=== PATIENT | female | born 1950 | race Caucasian/White ===

== ENCOUNTER 2023-09-27 05:05 | Observation (INO) ==
--- NOTE | 2023-08-29 12:25 | PAT Medication Instructions ---
Medication Instructions Date of Service August 29, 2023 Home Medications Medication Instructions Recorded budesonide-formoterol HFA 160 1 puffs inhalation BID #10.2 grams 11/22/19 mcg-4.5 mcg/actuation aerosol inhaler (Symbicort) nebivolol 10 mg tablet (Bystolic) 10 mg PO HS #90 tabs 12/02/20 Medication List: budesonide-formoterol HFA 160 mcg-4.5 mcg/actuation aerosol inhaler (Symbicort) 1 puffs inhalation BID cholecalciferol (vitamin D3) 125 mcg (5,000 unit) capsule 125 mcg PO QAM rosuvastatin 10 mg tablet 10 mg PO .COMPLEX nebivolol 10 mg tablet (Bystolic) 10 mg PO HS coenzyme Q10 100 mg tablet 100 mg PO HS mv-mn-folic 200 mcg-vit K 15 mcg-lutein 5 mg-zeaxanthin 1 mg capsule (PreserVision AREDS 2 Plus Multivit) 1 cap PO BID omeprazole 20 mg tablet,delayed release 20 mg PO QAM [facility] Bone Strength 3 tabs PO HS cetirizine 10 mg tablet 10 mg PO QAM hawthorn carr 565 mg capsule 565 mg PO QAM hydrochlorothiazide 12.5 mg tablet 12.5 mg PO QAM losartan 100 mg tablet 100 mg PO QAM MEDICATION INSTRUCTIONS: Continue as directed budesonide-formoterol HFA 160 mcg-4.5 mcg/actuation aerosol inhaler (Symbicort) 1 puffs inhalation BID rosuvastatin 10 mg tablet 10 mg PO .COMPLEX STOP taking 2 weeks before surgery coenzyme Q10 100 mg tablet 100 mg PO HS [facility] Bone Strength 3 tabs PO HS hawthorn carr 565 mg capsule 565 mg PO QAM mv-mn-folic 200 mcg-vit K 15 mcg-lutein 5 mg-zeaxanthin 1 mg capsule (PreserVision AREDS 2 Plus Multivit) 1 cap PO BID DO NOT take the morning of surgery hydrochlorothiazide 12.5 mg tablet 12.5 mg PO QAM losartan 100 mg tablet 100 mg PO QAM cetirizine 10 mg tablet 10 mg PO QAM cholecalciferol (vitamin D3) 125 mcg (5,000 unit) capsule 125 mcg PO QAM Take morning of surgery With a small sip of water, OTHERWISE NOTHING TO EAT OR DRINK AFTER MIDNIGHT: omeprazole 20 mg tablet,delayed release 20 mg PO QAM Take evening before surgery nebivolol 10 mg tablet (Bystolic) 10 mg PO HS Other Notes If you have any questions please call us at [phone] or [phone] or [phone] or [phone]
--- NOTE | 2023-08-31 14:20 | Anesthesiology Consultation ---
Date of Service August 31, 2023 Assessment & Plan (1) Encounter for pre-operative examination: - right arm restriction. - eye injection day before surgery-patient aware to discuss with prescriber and surgeon. I sent message to surgeon's office. - Outpatient joint assessment: Patient is currently scheduled for inpatient pathway. If re-evaluated and patient/surgeon requests outpatient pathway, patient is acceptable candidate for outpatient joint program from anesthesia standpoint pending surgeon's office assessment of pt motivation/support/completion of same day joint program preop requirements. Chart Review Chart Review: Acceptable Risk for Surgery and Patient seen in Pre Admission Testing Teaching & Discussion Pre-Anesthesia Teaching/Discussion Notes: Instructed NPO after midnight before surgery, except medications with 15 cc of water. Medication instructions provided according to the PAT guidelines. History Surgery Operation Date: 09/27/23 10:30 Proposed Procedures p Left Total Knee Arthroplasty - Toro Thorpe MD Height/Weight Height: 5 ft 2 in Weight: 76.7 kg Allergies Allergy/AdvReac Type Severity Reaction Status Date / Time NSAIDS (Non-Steroidal AdvReac Intermediate itching Verified 08/22/23 11:03 Anti-Inflamma Medications Home Medications Medication Instructions Recorded Confirmed Last Taken budesonide-formoterol HFA 160 1 puffs inhalation BID #10.2 grams 11/22/19 08/22/23 Unknown mcg-4.5 mcg/actuation aerosol inhaler (Symbicort) cholecalciferol (vitamin D3) 125 125 mcg PO QAM 11/22/19 08/22/23 Unknown mcg (5,000 unit) capsule rosuvastatin 10 mg tablet 10 mg PO .COMPLEX 08/26/20 08/22/23 Unknown nebivolol 10 mg tablet (Bystolic) 10 mg PO HS #90 tabs 12/02/20 08/22/23 Unknown coenzyme Q10 100 mg tablet 100 mg PO HS 08/10/22 08/22/23 Unknown mv-mn-folic 200 mcg-vit K 15 1 cap PO BID 08/10/22 08/22/23 Unknown mcg-lutein 5 mg-zeaxanthin 1 mg capsule (PreserVision AREDS 2 Plus Multivit) omeprazole 20 mg tablet,delayed 20 mg PO QAM 08/10/22 08/22/23 Unknown release [facility] Bone Strength 3 tabs PO HS 08/22/23 08/22/23 Unknown cetirizine 10 mg tablet 10 mg PO QAM 08/22/23 08/22/23 Unknown suzie carr 565 mg capsule 565 mg PO QAM 08/22/23 08/22/23 Unknown hydrochlorothiazide 12.5 mg tablet 12.5 mg PO QAM 08/22/23 08/22/23 Unknown losartan 100 mg tablet 100 mg PO QAM 08/22/23 08/22/23 Unknown Past Medical History Medical History AMD (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 HTN (hypertension) controlled, stable per pt Limb alert care status right arm Patient denies h/o stroke, seizures, heart attack, heart failure, DM, blood clots/DVTs or blood transfusions. Exercise / Class Metabolic Activity II 4-5 Yardwork/Stairs/Walk up hill (denies chest discomfort or shortness of breath with 1 FOS) Past Family History Family History Grandfather (Maternal) , Passed in 80's of "bone cancer" No problems noted. Mother , Passed age 86 of Pancreatic Cancer Pancreatic cancer Father , Passed in 80's of "blood cancer" Clotting disorder Stroke Diabetes Heart disease Hypertension Brother , Passed age 40 of alcoholic/drugs No problems noted. Daughter No problems noted. 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 Physical Exam Vital Signs Vitals BP 113/77 P 66 TEMP 98.4 SP02 94% on RA RESP 18 Physical Patient resting comfortably in chair in no acute distress, alert and oriented, responding appropriately throughout visit Full cervical extension range of motion without pain TMD 3.5 finger breadths Mallampati Score 2 Dentition: partial plate-removable and several caps/crowns, denies chipped or loose teeth, caps/crowns, implants or bridges Lungs: normal respiratory effort. Good air movement, clear throughout to auscultation, no adventitious breath sounds Cardiac: regular rate and rhythm, no murmurs noted Carotid arteries: negative bruit bilat Lab Results Anesthesia Preop Results Results Anesthesia Widget: WBC 5.66 K/ul (4.8-10.8) 08/31/23 Hgb 13.1 g/dl (12.0-16.0) 08/31/23 Hct 37.8 % (37.0-47.0) 08/31/23 Plt 181 K/uL (130-400) 08/31/23 Na 132 mmol/L (136-145) L 08/31/23 K 3.7 mmol/L (3.5-5.1) 08/31/23 Cl 100 mmol/L (98-107) 08/31/23 CO2 27 mmol/L (21-32) 08/31/23 BUN 22 mg/dl (6-23) 08/31/23 Creat 0.89 mg/dl (0.6-1.2) 08/31/23 Glucose Level 124 mg/dl (70-99(Fasting)) H 08/31/23 PT 11.1 Seconds (9.0-12.0) 08/31/23 PTT 25 Seconds (21-31) 08/31/23 INR 1.0 (0.9-1.1) 08/31/23 Blood Type A Positive 08/31/23 Antibody Screen NEGATIVE 04/03/24 Testing Electrocardiogram Date: 08/31/23 Sinus bradycardia, rate 58 bpm Chest X-Ray Date: 08/31/23 No acute process.
[2023-09-27] MEDS: ACETAMINOPHEN 500 MG TAB PO SCH ×2 (05:44→13:07)
[2023-09-27] MEDS: dexAMETHasone**PF** 10 MG/ML VIAL IV SCH (05:44)
[2023-09-27] MEDS: METOCLOPRAMIDE HCL 10 MG TABLET PO SCH (05:44)
[2023-09-27] MEDS: oxyCODONE HCL 10 MG TABCR (OxyCONTIN) PO SCH (05:44)
[2023-09-27] MEDS: GABAPENTIN 300 MG CAP PO SCH (05:45)
[2023-09-27] MEDS: LR 60ML/HR IV SCH (05:45)
[2023-09-27] MEDS: traMADol HCL 50 MG TABLET PO SCH (05:45)
[2023-09-27] MEDS: FAMOTIDINE 20 MG TAB PO SCH (05:45)
[2023-09-27] MEDS: CeleBREX 200 MG CAP PO SCH (05:46)
[2023-09-27] MEDS: LR 500ML BOLUS, THEN 15ML/HR IV SCH (06:10)
[2023-09-27] MEDS ORDERED: ROPIVACAINE 0.5% 5 MG/ML 30 ML VIAL ONE (06:17)
[2023-09-27] MEDS ORDERED: PROPOFOL IV EMULSION 10 MG/ML 20 ML VIAL IV ONE ×2 (06:22→08:53)
[2023-09-27] MEDS ORDERED: fentaNYL citrate PF 100 MCG/2 ML VIAL ONE (06:22)
[2023-09-27] MEDS ORDERED: MIDAZOLAM HCL 1 MG/ML 2ML VIAL ONE (06:22)
[2023-09-27] MEDS ORDERED: ePHEDrine sulfate 50 MG/ML AMP IV PRN (06:43)
[2023-09-27] MEDS ORDERED: ATROPINE SULFATE 0.1 MG/ML 10ML SYR IV PRN (06:43)
[2023-09-27] MEDS ORDERED: ONDANSETRON INJ 2 MG/ML 2 ML VIAL IV PRN (06:43)
[2023-09-27] MEDS ORDERED: fentaNYL citrate PF 100 MCG/2 ML VIAL IV PRN (06:43)
[2023-09-27] MEDS ORDERED: HYDROmorphone INJ 2 MG/ML SYR/VIAL IV PRN (06:43)
--- NOTE | 2023-09-27 06:44 | History & Physical Bridge Note ---
Date of Service September 27, 2023 History & Physical Bridge Note I have examined the patient, reviewed the History & Physical and in the interval since the performance of the History & Physical I have noted the following changes of clinical significance: no changes noted
[2023-09-27] MEDS: TRANEXAMIC ACID 1,000 MG **IV Pre-op IV SCH (06:51)
[2023-09-27] MEDS: ceFAZolin 2000MG 2,000 MG/15 ML SYR IV SCH ×2 (07:05→15:59)
[2023-09-27] MEDS ORDERED: BUPIVACAINE 0.5 % 5 MG/1 ML PF 10ML VIAL ONE (07:22)
[2023-09-27] MEDS: ORTHO JOINT ANESTHETIC ONE (07:37)
[2023-09-27] MEDS: ROPIV 0.5% 246mg, Ketorolac 30mg, EPINEPHrine 0.5mg in NSS INFIL SCH (07:37)
--- OUTSIDE RECORDS SUMMARY | 2023-09-27 08:14 | External Medical Summary | Continuity of Care Document ---
Author Name Unknown Organization [facility] [address] [facility] [address] Address [address] [place], [place] [id number] [id number] Date(s): 08/31/23 - 08/31/23 [facility] [address] [facility] [address] [facility] Sports Medicine [address] [place] [id number] Encounter Diagnosis Left knee DJD(Discharge Diagnosis) - 08/31/23 Discharge Disposition: Home or Self Care Attending Physician: MIKE Mcnulty, Estela Germain Referring Physician: MD Maurilio, Toro Myers Allergies, Adverse Reactions, Alerts Substance Reaction Severity Status ibuprofen itching Active Medications Bystolic Start: 03/18/23 8:59:00 EDT Start Date: 03/18/23 Status: Ordered CoQ10 Start: 03/18/23 9:00:00 EDT Start Date: 03/18/23 Status: Ordered Euflexxa 10 mg/mL intra-articular solution Start: 04/04/23 12:44:00 EST, 20 mg =, intra-articular, q7days, Disp# 6 mL, Refills: 0, 6 syringes for B/L knees., Note to Pharmacy: B/L KNEE DJD M17.0, other Start Date: 04/04/23 Stop Date: 04/25/23 Status: Ordered hydroCHLOROthiazide 12.5 mg oral capsule Start: 03/18/23 8:58:00 EDT Start Date: 03/18/23 Status: Ordered ICaps AREDS Start: 03/18/23 9:00:00 EDT Start Date: 03/18/23 Status: Ordered losartan 100 mg oral tablet Start: 03/18/23 8:58:00 EDT Start Date: 03/18/23 Status: Ordered omeprazole Start: 03/18/23 8:59:00 EDT Start Date: 03/18/23 Status: Ordered rosuvastatin 10 mg oral tablet Start: 03/18/23 8:57:00 EDT Start Date: 03/18/23 Status: Ordered Symbicort 160 mcg-4.5 mcg/inh inhalation aerosol Start: 03/18/23 8:58:00 EDT Start Date: 03/18/23 Status: Ordered Vitamin D3 5000 intl units (125 mcg) oral tablet Start: 03/18/23 9:00:00 EDT Start Date: 03/18/23 Status: Ordered ZyrTEC Start: 03/18/23 8:59:00 EDT Start Date: 03/18/23 Status: Ordered Mental Status 08/31/23 Barriers to Learning one year None evide nt Mandatory Health Literacy Documentation Yes Health Literacy Communication Barriers N ever Primary Language Yoruba Problem List Condition Confirmation Course Effective Dates Status Health St atus Informant Arthritis of both knees Confirmed Active Left knee DJD Confirmed Active Diagnosis Diagnosis Type Effective Dates Health Status Cl inical Service Informant Left knee DJD Discharge Diagnosis 08/31/23 Vital Signs Most recent to oldest [Reference Range]: 1 Height 157.5 cm (08/31/23 12:57 PM) Patient Weight 75 kg (08/31/23 12:57 PM) Body Mass Index 30.23 kg/m2 (08/31/23 12:57 PM) Temperature [36.5-37.9 DegC] 36.2 DegC *LOW* (08/31/23 12:57 PM) Respiratory Rate 20 br/min (08/31/23 12:57 PM) Blood Pressure 124/80mmHg (08/31/23 12:57 PM) Cuff Pulse Pressure 44 mmHg (08/31/23 12:57 PM) Social History Social History Type Response Smoking Status Never smoked cigaret isra Sex Female
[2023-09-27] MEDS: VANCOMYCIN HCL 1000MG/20ML VIAL ONE (09:25)
--- NOTE | 2023-09-27 10:03 | Operative Report ---
Post Operative Report Pre & Post Diagnosis Operation Date: 09/27/23 07:00 Pre-Op Diagnosis: Left Knee Osteoarthritis Post-Op Diagnosis: Left Knee Osteoarthritis I identified the patient and participated in the time-out.: Yes Procedure Operation Date: 09/27/23 07:00 Actual Procedures p Left Total Knee Arthroplasty(Left) - Toro Thorpe MD Surgeon Toro Thorpe MD S[employer]ities [employer]er LEVI Bates physicians optometrist assistant no resident or fellow available Estimated Blood Loss 5 Findings Consistent with Post-Op Diagnosis Specimens Resected bone and soft tissue Anesthesia Type MAC Spinal Regional Complications none Disposition Accompanied Patient To Recovery: No Disposition: Recovery Room Indications Lashawn bah 73 has severe arthritis of her left knee. This is refractory to nonsurgical treatment and she wishes to have a total knee replacement. Description of Procedure Informed consent obtained. Patient identified. She identified the operative site as the left knee. I marked with my initials. A preoperative surgical timeout was performed. A preop dose of IV antibiotics was given. She was taken to the operating room positioned supine on the operating table. The anesthetic was administered. A tourniquet was applied to the left thigh and a bump under the left hip and left calf. Leg was prepped and draped in the usual sterile fashion. TXA given. Exam under anesthesia revealed range of motion 0/10/110 with fixed varus alignment. Intact LCL. DVT prophylaxis with foot pumps intraoperatively. Postop early mobility mechanical devices and Eliquis. The limb was exsanguinated with the Esmarch. Tourniquet inflated to 250 mmHg. Midline longitudinal incision was made followed by medial parapatellar arthrotomy. The retropatellar fat pad was resected. The synovial layer in the lateral gutter was released. An extensile medial release was performed back around the posterior medial corner of the tibia. Soft tissue on the anterior aspect of the distal femur was excised. The patella was everted and the knee was flexed. Notch osteophytes were excised and the cruciate ligaments were intact and excised. The tibia was subluxated. Cruciates resected. Lateral compartment showed intact articular surfaces and meniscus. Medial lateral meniscus excised. The medial meniscus was deficient. There was severe arthritis in the medial compartment with grade 4 changes and bone wear of the femur and tibia and large osteophytes which were removed throughout the knee as encountered. There was grade 2 and 3 changes of the patella. The peripatellar synovium was excised and osteophytes on the patella were removed. A harbor pilot hole was drilled into the tibia just in front of and between the tibial spines. This was followed by the introduction of the intramedullary alignment nilay. The 3 degree posterior slope cutting block was applied and aligned to the tibial tubercle. Set to resect 10 mm off the lateral side corresponding to a 4 mm cut medially. This guide was pinned in the place and the extra medullary alignment nilay confirmed appropriate alignment and slope. This cut was made and sized to a 3 tibia. A harbor pilot hole was drilled in the distal femur followed by the insertion of the distal femoral cutting guide. 11 mm thick cut 7 degree valgus based on templating. This guide was pinned into place and the cut was made. The extension gap was a slightly asymmetric 6. The epicondylar axis was marked out. The distal femoral sizing guide was applied and sized to a 3. The pin holes were drilled which matched the external rotation axis. The size 3 anterior noncutting block was applied and pinned into place and the cuts were made. The box cutting guide was applied and lateralized and the box cut was made. Posterior osteophytes were removed particularly on the medial femur. Also large osteophytes posterior medial tibia and lateral tibia. Trialing was again performed and after some more medial releasing there was a symmetric 8 mm flexion and extension gap. The trial femur was applied and the lug holes were drilled. The tibia was prepared by aligning the tray to the tibial tubercle which provided good medial to lateral coverage and appropriate rotation. The revision tibial tray was utilized because of the patient's osteoporosis. The appropriate reamers were utilized to the appropriate depth. This was followed by the keel punch. Trialing was then performed with 8 mm spacer which showed full extension. Slight residual play in full extension and 1+ MCL and LCL laxity in mid position and slight plate medial lateral at 90 degrees of flexion. I was not happy with the depth of seeding of the revision tibial tray and then went ahead and reprepped the tibia to ensure that it was of adequate depth. Even at that and with leveling some posterolateral bone that may have been prominent the revision tibial tray trial sat a millimeter or so proud. The patella measured 22 mm in thickness. Gap was sent to preserve 14 mm of bone. A 35 mm patella was selected. The cut was made. The patella paddle was aligned with the knee in slight flexion and aligned for coverage. The lug holes were drilled and patellar tracking was fine with no hands technique.The trial components were removed from the knee. The tibial canal was plugged. The bony surfaces were then meticulously prepared by irrigation and drying. Soft tissue protector was throughout the surgical procedure. Ortho joint mix was injected into the back of the knee. 2 bags of Simplex P cement with 2 total grams of vancomycin powder were mixed on the back table for 1 minute. While in a daily state the components were cemented in place femur tibia and patella. Cement applied to the lug holes and to the posterior aspect of the femur. The stem was cemented and placed on the tibia. The knee was held in full extension with a trial spacer until the cemented hardened. The remainder of the Ortho joint mix was injected and irrigation was performed. Once the cemented hardened the tourniquet was let down after 112 minutes of inflation. Minimal bleeding. Meticulous hemostasis. Patellar thickness was 22 mm. Extraneous cement was removed and the back of the knee was inspected. Trialing was performed with the 8 and then the 10. There was 1+ MCL and LCL laxity at 20 degrees knee flexion which was improved by the 10 spacer. The knee was fully straight stable in full extension and at 90 and had trace MCL laxity at 20 degrees knee flexion and 1+ LCL laxity at 20 degrees knee flexion. Patellar tracking was fine with no hands technique. The final tibial poly was inserted. Irrigation performed. The extensor mechanism was closed above the equator the patella with interrupted #2 FiberWire's. The extensor mechanism below the equator the patella was closed with running interrupted #1 Vicryl. The skin was closed in layers with 0 and 2-0 Vicryl followed by isabella. The leg was cleaned and then a soft roll dressing was applied Xeroform 4 x 4's ABD soft wrap Ben wrap. The Ortho joint mix was injected into the skin at the conclusion of the procedure. Knee immobilizer supplied to patient. She was then awakened from anesthesia without difficulty and taken to the recovery room in stable condition. The resected bone and soft tissue were sent for specimen. Counts were correct and blood loss is estimated to be 5 cc. At the conclusion of the operation spoke to patient's informed of my findings and postop instructions and details were given and discussed. Plan is to rehab according to standard total knee repair protocol. She may weight-bear as tolerated. Harviell assisted flexion with extensor mechanism closed was 120 to 125 degrees. The knee was fully straight. Components inserted were the J&J attune knee a siz e 3 left posterior stabilized femur, a size 3 mobile-bearing keeled tibial tray with a size 3 x 10 mm thick polyethylene insert and a 35 mm patella. I attest to the content of the Intraoperative Record and any orders documented therein. Any exceptions are noted below.
[2023-09-27] MEDS ORDERED: NALOXONE HCL 0.4 MG/1 ML VIAL/CARP IV PRN (10:10)
[2023-09-27] MEDS ORDERED: METOCLOPRAMIDE HCL INJ 5 MG/ML 2 ML VIAL IV PRN (10:10)
[2023-09-27] MEDS ORDERED: HYDROmorphone INJ 0.5 MG/0.5 ML SYR IV PRN (10:10)
[2023-09-27] MEDS ORDERED: ALUMINUM/MAGNESIUM SUSP 30 ML UDC PO PRN (10:10)
[2023-09-27] MEDS ORDERED: bisacodyL 10 MG SUPP PR PRN (10:10)
[2023-09-27] MEDS ORDERED: diphenhydrAMINE 50 MG/ML VIAL IV PRN (10:10)
[2023-09-27] MEDS ORDERED: MAGNESIUM HYDROXIDE SUSP 30 ML UDC PO PRN (10:10)
--- NOTE | 2023-09-27 10:10 | Operative Report ---
Post Operative Report Pre & Post Diagnosis Operation Date: 09/27/23 07:00 Pre-Op Diagnosis: Left Knee Osteoarthritis Post-Op Diagnosis: Left Knee Osteoarthritis I identified the patient and participated in the time-out.: Yes Procedure Operation Date: 09/27/23 07:00 Actual Procedures p Left Total Knee Arthroplasty(Left) - Toro Thorpe MD Surgeon Toro Thorpe MD Soda Jerker LEVI Bates physicians historian research assistant no resident or fellow available Estimated Blood Loss 5 Findings Consistent with Post-Op Diagnosis Specimens left knee bone and soft tissue Description of Procedure I was present during the entire case assisting with positioning, prepping, draping, wound retraction, wound closure, dressing and immobilizer placement. No fellow present. Please see Dr. Thorpe procedure note for specifics of the case. I attest to the content of the Intraoperative Record and any orders documented therein. Any exceptions are noted below.
[2023-09-27] MEDS ORDERED: NO NSAIDS SCH (10:15)
--- NOTE | 2023-09-27 11:15 | XRay Report ---
LEFT KNEE 2 VIEWS History: Left total knee arthroplasty. Degenerative arthritis. Postop. FINDINGS: The patient is status post a left total knee arthroplasty. The hardware is intact. No fract ure or dislocation. Skin isabella are in place. IMPRESSION: Left total knee arthroplasty. No evidence for hardware complication. ACT 112: Negative or not required by law. Electronically signed by: Devendra Fermin M.D. 09/27/2023 11:14 AM
[2023-09-27] MEDS: SODIUM CHLORIDE 0.9% 1,000 ML IV SCH (12:03)
[2023-09-27] MEDS: ONDANSETRON INJ 2 MG/ML 2 ML VIAL IV PRN (12:07)
[2023-09-27] MEDS: ROSUVASTATIN CALCIUM 10 MG TAB PO SCH (13:07)
--- NOTE | 2023-09-27 13:52 | Anesthesiology Progress Note ---
Date of Service September 27, 2023 Anesthesia Post Procedure Vital Signs Vital Signs: Temp Pulse Pulse Resp BP BP Pulse Ox 09/27/23 13:29 36.3 C L 58 L 16 158/77 H 94 09/27/23 12:24 36.4 C L 68 16 169/75 H 94 09/27/23 12:00 36.6 C 56 L 16 149/72 H 95 09/27/23 11:25 36.3 C L 55 L 16 152/76 H 95 09/27/23 11:00 54 L 20 156/75 H 96 09/27/23 10:50 36.4 C L 60 18 161/74 H 96 09/27/23 10:40 53 L 20 143/66 H 94 09/27/23 10:30 54 L 18 157/70 H 94 09/27/23 10:20 56 L 20 155/71 H 95 09/27/23 10:10 56 L 16 143/72 H 95 09/27/23 10:09 36.6 C 60 15 139/74 96 09/27/23 05:33 36.6 C 57 L 20 159/77 H 96 O2 Del Method 09/27/23 13:29 Room Air 09/27/23 12:24 Room Air 09/27/23 12:00 Room Air 09/27/23 11:25 Room Air 09/27/23 11:00 Room Air 09/27/23 10:50 Room Air 09/27/23 10:40 Room Air 09/27/23 10:30 Room Air 09/27/23 10:20 Room Air 09/27/23 10:10 Room Air 09/27/23 10:09 Room Air 09/27/23 05:33 Room Air Transfer of Care Handoff Completed per policy Notes Mental Status: alert / awake / arousable and participated in evaluation Patient Amnestic to Procedure: Yes Nausea / Vomiting: adequately controlled Pain: adequately controlled Airway Patency, RR, SpO2: stable & adequate BP & HR: stable & adequate Hydration State: stable & adequate Neuraxial Anesthesia: was administered and sensory block is resolving Anesthetic Complications: no major complications apparent and Pt Satisfied with anesthetic care
[2023-09-27] MEDS: oxyCODONE HCL IR 5 MG TAB (IMMEDIATE RELEASE) PO PRN (14:53)
[2023-09-27] MEDS: TRANEXAMIC ACID / 0.7% NACL 1,000 MG/100 ML BAG IV SCH (16:03)
--- NOTE | 2023-09-27 17:04 | Orthopedic Progress Note ---
Date of Service September 27, 2023 Assessment & Plan (1) Status post knee replacement: Plan: Surgical findings are reviewed and discussed. She is stable postoperatively. PT OT pain medication antibiotics and Eliquis beginning in the morning. Numbness and weakness likely secondary to nerve block. Will reassess Admission and Anticipated Discharge Date Admission Date: September 27, 2023 Subjective No problems noted. Minor nausea controlled with medication. Pain is well- controlled. Physical Exam Physical Exam: DP and PT pulses are 1+. Capillary refill less than 2 seconds. There is persistent numbness in the foot likely secondary to the block. She has 4+ out of 5 EHL. No active ankle dorsiflexion. She has 5-4 inversion eversion and plantarflexion. Results & Data Vital Signs (Past 12 Hours) Vital Signs Temp Pulse Pulse Resp BP BP Pulse Ox 09/27/23 14:57 36.6 C 72 16 179/83 H 95 09/27/23 13:29 36.3 C L 58 L 16 158/77 H 94 09/27/23 12:24 36.4 C L 68 16 169/75 H 94 09/27/23 12:00 36.6 C 56 L 16 149/72 H 95 09/27/23 11:25 36.3 C L 55 L 16 152/76 H 95 09/27/23 11:00 54 L 20 156/75 H 96 09/27/23 10:50 36.4 C L 60 18 161/74 H 96 09/27/23 10:40 53 L 20 143/66 H 94 09/27/23 10:30 54 L 18 157/70 H 94 09/27/23 10:20 56 L 20 155/71 H 95 09/27/23 10:10 56 L 16 143/72 H 95 09/27/23 10:09 36.6 C 60 15 139/74 96 09/27/23 05:33 36.6 C 57 L 20 159/77 H 96 O2 Del Method 09/27/23 14:57 Room Air 09/27/23 13:29 Room Air 09/27/23 12:24 Room Air 09/27/23 12:00 Room Air 09/27/23 11:25 Room Air 09/27/23 11:00 Room Air 09/27/23 10:50 Room Air 09/27/23 10:40 Room Air 09/27/23 10:30 Room Air 09/27/23 10:20 Room Air 09/27/23 10:10 Room Air 09/27/23 10:09 Room Air 09/27/23 05:33 Room Air Diagnostic Findings Radiographs demonstrate good positioning of the components without evidence of complication.Report noted.
[2023-09-27] MEDS ORDERED: [UNRECOGNIZED DRUG - OTHER] PO SCH (21:00)
[2023-09-27] MEDS: SENNA 8.6 MG TAB PO SCH (21:07)
[2023-09-27] MEDS: DOCUSATE SODIUM 100 MG CAP PO SCH (21:07)
[2023-09-27] MEDS: CEROVITE ADV FORMULA TAB PO SCH (21:07)
[2023-09-27] MEDS ORDERED: Nursing to Pharmacy Communication SCH (21:30)
[2023-09-27] MEDS: METOPROLOL TARTRATE 50 MG TAB PO SCH (22:26)
[2023-09-27] MEDS: NEBIVOLOL 10 MG PO ONE (22:27)
[2023-09-28 03:26] VITALS: RESP 18
[2023-09-28 07:11] LABS: Hematocrit (blood only) 34.7 % (37.0-47.0); Hemoglobin 11.9 g/dl (12.0-16.0); Mean Corpuscular Hemoglobin 32.5 pg (25.0-34.0); Mean Corpuscular Hgb Conc 34.3 g/dL (32.0-36.0); Mean Corpuscular Volume 94.8 fL (80.0-100.0); Mean Platelet Volume 11.5 fL (9.4-12.4); Platelet Count 164 K/uL (130-400); RDW Coefficient of Variation 12.1 % (11.5-14.5); RDW Standard Deviation 41.9 fL (36.4-46.3); Red Blood Count 3.66 M/uL (4.20-5.40); White Blood Count 9.69 K/ul (4.8-10.8)
[2023-09-28 07:21] LABS: Calcium 8.8 mg/dl (8.6-10.3); Creatinine Clr Calc Pharmacy 54.7 ml/min; Est GFR (African American) 76.6 ml/min; Est GFR (Non-African American) 66.1 ml/min; Potassium 3.9 mmol/L (3.5-5.1)
[2023-09-28] MEDS: APIXABAN 2.5 MG TAB PO SCH (08:06)
[2023-09-28] MEDS: CETIRIZINE HCL 10 MG TABLET PO SCH (08:06)
[2023-09-28] MEDS: CHOLECALCIFEROL 125 MCG (5,000 UNITS) TAB PO SCH (08:07)
[2023-09-28] MEDS: FLUTICASONE/VILANTEROL 100/25MCG 14 PUFFS/INHALER INH SCH (08:08)
[2023-09-28] MEDS: MULTIVITAMIN TAB PO SCH (08:09)
[2023-09-28] MEDS: hydroCHLOROthiazide 25 MG TAB PO SCH (08:09)
[2023-09-28] MEDS: LOSARTAN POTASSIUM 50 MG TAB PO SCH (08:09)
[2023-09-28] MEDS: PANTOprazole 40 MG TAB PO SCH (08:10)
--- NOTE | 2023-09-28 09:59 | Orthopedic Progress Note ---
Date of Service September 28, 2023 Assessment & Plan (1) Status post knee replacement: Plan: Weightbearing as tolerated with walker assistance Discontinue immobilizer PT/OT DVT prophylaxis with Eliquis and GABY stockings Pain control with p.o. medication Ice with easy wrap Keep dressing in place until it is changed by in-home nursing Plan is to discharge home later this morning with in-home physical therapy for the first 2 weeks postoperatively Follow-up with [facility] orthopedics as previously scheduled. With questions contact our clinic at [phone] Admission and Anticipated Discharge Date Admission Date: September 27, 2023 Subjective This 73-year-old female is day 1 status post left total knee arthroplasty. Patient states she is doing very well. She states that her pain is well- controlled with p.o. pain medication. She is hoping to be discharged home later this morning with in-home physical therapy and home nursing for the first 2 weeks. She states that she has help at home with her and daughter. She states that she is able to raise her leg and hopes to discontinue use of the immobilizer because it is uncomfortable. Currently she denies chest pain, shortness of breath, fever, chills, sweats or numbness or tingling in her left lower extremity. Review of Systems Review of Systems: All systems reviewed & are unremarkable except as noted in Subjective Physical Exam Physical Exam: Left lower extremity: Immobilizer was removed. Patient is able to form an active straight leg raise test. She is able to actively dorsi and plantarflex her foot and has no weakness with applied resistance. She has no pain or weakness with resisted internal or external rotation. She is able to detect light sensation to touch over the pads of all digits. Her peripheral pulses are 2+. She is neurovascularly intact in the left lower extremity. Dressing was kept in place because it was clean dry and intact. Results & Data Vital Signs (Past 12 Hours) Vital Signs Temp Pulse Resp BP Pulse Ox O2 Del Method 09/28/23 07:27 36.8 C 62 18 150/70 H 95 Room Air 09/28/23 03:22 36.7 C 64 18 149/72 H 94 Room Air 09/27/23 23:14 36.8 C 63 17 130/75 93 Room Air Laboratory Results Laboratory Results WBC 9.69 K/ul (4.8-10.8) 09/28/23 06:29 RBC 3.66 M/uL (4.20-5.40) L 09/28/23 06:29 Hgb 11.9 g/dl (12.0-16.0) L 09/28/23 06:29 Hct 34.7 % (37.0-47.0) L 09/28/23 06:29 MCV 94.8 fL (80.0-100.0) 09/28/23 06:29 MCH 32.5 pg (25.0-34.0) 09/28/23 06: MCHC 34.3 g/dL (32.0-36.0) 09/28/23 06:29 RDW Std Deviation 41.9 fL (36.4-46.3) 09/28/23 06: RDW Coeff of Reginald 12.1 % (11.5-14.5) 09/28/23 06:29 Plt Count 164 K/uL (130-400) 09/28/23 06:29 MPV 11.5 fL (9.4-12.4) 09/28/23 06:29 Sodium 134 mmol/L (136-145) L 09/28/23 06:29 Potassium 3.9 mmol/L (3.5-5.1) 09/28/23 06:29 Chloride 100 mmol/L (98-107) 09/28/23 06:29 Carbon Dioxide 26 mmol/L (21-32) 09/28/23 06:29 Anion Gap 8 (3-11) 09/28/23 06:29 BUN 20 mg/dl (6-23) 09/28/23 06:29 Creatinine 0.87 mg/dl (0.6-1.2) 09/28/23 06:29 Est Cr Clr Drug Dosing 54.7 ml/min 09/28/23 06:29 Est GFR ( Amer) 76.6 ml/min 09/28/23 06:29 Est GFR (Non-Af Amer) 66.1 ml/min 09/28/23 06:29 BUN/Creatinine Ratio 23.0 (10-20) H 09/28/23 06:29 Glucose 157 mg/dl (70-99(Fasting)) H 09/28/23 06:29 Calcium 8.8 mg/dl (8.6-10.3) 09/28/23 06:29 Impressions Knee X-Ray 09/27/23 10:10 LEFT KNEE 2 VIEWS History: Left total knee arthroplasty. Degenerative arthritis. Postop. FINDINGS: The patient is status post a left total knee arthroplasty. The hardware is intact. No fracture or dislocation. Skin isabella are in place. IMPRESSION: Left total knee arthroplasty. No evidence for hardware complication. ACT 112: Negative or not required by law. Electronically signed by: Devendra Fermin M.D. 09/27/2023 11:14 AM
[2023-09-28] MEDS: CEROVITE ADV FORMULA TAB PO SCH (11:04)
[2023-09-28 11:32] VITALS: PULSE 66; TEMP 98.9; O2SAT 92
[2023-09-28 11:47] VITALS: BP 169/75
--- NOTE | 2023-09-28 12:22 | Discharge Summary ---
Date of Service September 28, 2023 Admission HPI Per Admitting Provider History of Present Illness Lashawn Triana is a 72-year-old female who presents today for f/u of bilateral knee pain. She ended her series of Euflexxa injections on 05/13/2023 and states that these were not helpful and may have worsened her pain. Patient is having severe amounts of pain and is considering TKA. Her left knee pain is worse than her right. She has lateral left knee pain and overarching constant pain. Patient takes Tylenol for her pain and describes her pain as burning. She rates her pain as a 6/10. Patient has pain at rest, when walking, and that it wakes her up at night. She denies swelling. Patient has previously had cortisone injections, lubricating injections, and use Tylenol. Her pain has worsened since her last visit. To her worsening symptoms and failure of conservative treatment she wishe s to proceed with a left total knee arthroplasty. She states that her left knee is worse than the right. She uses a walking cane to assist with ambulation. She has a walker and a raised toilet seat and a shower chair for use at home. She has not had her bone density re-checked and has a history of osteoporosis. T-score in 05/2020 of spine is -2.1, total hip -2.2, and femoral neck -2.6. She takes [employer] [place] Bone Strength. Patient has reservations about getting her bone density treated and does not trust the medicines she has heard about. She is following up with her PCP next month. Patient is not a smoker. She has a history of breast cancer, HTN, HLD, and asthma. Patient states that all of these are in control. She denies history of liver or kidney disease. Patient does not take a blood thinner or pacemaker. She is allergic to Ibuprofen and gets itching when she takes this. Patient has previously had a spinal anesthetic when she had a section and states that this only numbed one side. There is no history of bleeding or blood clots allergies to metal or MRSA. She does not have any significant dental or genitourinary problems. No recurrent infections. Admission Exam Per Admitting Provider General: Well-dressed, well-nourished. Normal mood and affect. Alert and oriented x3. HEENT: Head: Atraumatic, normocephalic. Eyes: Extraocular movements intact, pupils equal round and reactive to light, sclera normal. Ears: Ears grossly normal, TMs are clear normal light reflex. Nose: Nares are patent bilaterally. Throat: Oropharynx clear mucous membranes moist good dentition uvula midline. Neck: Supple, no lymphadenopathy, nontender palpation, full range of motion. Cardiac: Regular rate and rhythm, normal S1, S2. No murmurs, rubs or gallops appreciated. Lungs: Clear to auscultation bilaterally. No adventitious sounds. No accessory muscle use. Abdomen: Soft, nontender, nondistended, normal bowel sounds heard in all 4 quadrants. Extremities: Focusing on the patient's bilateral lower extremity: Antalgic gait Varus Alignment 1+ DP and 1+ PT pulses Sensation intact to light touch Motor strength: 5/5 Knee flexion and extension; ankle plantarflexion, dorsiflexion, inversion, and eversion. Knee (left) ROM: 0/ 5/ 100 Knee (right) ROM: 0/ 2/ 115 Intact active straight leg raise No effusion Hip ROM: Painless, Equal to other side Medial knee joint tenderness bilaterally left greater than right. Left: Positive medial joint line tenderness Negative posterior drawer Knee is stable in full extension 1+ MCL and LCL laxity at 20 knee flexion Principal Diagnosis Left knee osteoarthritis Discharge Exam Left lower extremity: Immobilizer was removed. Patient is able to form an active straight leg raise test. She is able to actively dorsi and plantarflex her foot and has no weakness with applied resistance. She has no pain or weakness with resisted internal or external rotation. She is able to detect light sensation to touch over the pads of all digits. Her peripheral pulses are 2+. She is neurovascularly intact in the left lower extremity. Dressing was kept in place because it was clean dry and intact. Discharge Data Allergies Allergy/AdvReac Type Severity Reaction Status Date / Time NSAIDS (Non-Steroidal AdvReac Intermediate itching Verified 09/27/23 05:37 Anti-Inflamma Procedures Performed Operation Date: 09/27/23 07:00 Actual Procedures p Left Total Knee Arthroplasty(Left) - Toro Thorpe MD Ordered Studies 09/27/23 05:00 US - OR guided needle placemen Routine Hospital Course (1) Status post knee replacement: Patient had an uneventful overnight stay following left total knee arthroplasty. She did develop some nausea after having her IV removed prior to discharge and I was contacted by her nurse. I did send a prescription for Zofran tablets to her pharmacy to use for the next few days. Patient is scheduled to begin physical therapy in her home later this week. She states that she will be primarily standing on the first floor of her home until she feels able to and safe to ascend her stairs. She is very pleased with the results of her surgery. She has questions or concerns she will contact her clinic. Weightbearing as tolerated with walker assistance Discontinue immobilizer PT/OT DVT prophylaxis with Eliquis and GABY stockings Pain control with p.o. medication Ice with easy wrap Keep dressing in place until it is changed by in-home nursing Plan is to discharge home later this morning with in-home physical therapy for the first 2 weeks postoperatively Follow-up with [facility] orthopedics as previously scheduled. With questions contact our clinic at [phone] Total Time Total Time Spent Total Time Spent (In Minutes): 25 mins Discharge Plan Discharge Items Patient Disposition: Home - Home Health Services Reason For Visit: Left Knee Osteoarthritis Discharge Diagnosis: Left knee osteoarthritis Activity: As commented below Lifting: None Bathing: Keep incision dry and May shower/bathe in 3 days Sexual Activity: Wait until after follow-up appointment Exercise/Sports: Wait until after follow-up appointment Driving/Machine Use: No driving until cleared by loss prevention specialist Weightbearing: Left weightbearing Weightbearing Comment: As tolerated with walker assistance Non-emergency contact: Surgeon Call non-emergency contact if: you have any medication questions, your pain is not controlled, your temperature is above 101.5, your wound has increased drainage and your wound pain has increased Follow-up/Referrals: Kelvin Polk PA-C [Primary Care Provider] - Diet: Carb Consistent or DM2 Addtl Attending Provider Instructions: New Medicine: * You will likely be taking one or more of these medications: 1. Eliquis- You will be on Eliquis for 4 weeks after surgery to prevent blood clots. Aspirin, 81 mg is OK to use. A prescription for the Eliquis will will be sent to your pharmacy. 2. Oxycodone 5 mg-take 1 to 2 tablets every 4-6 hours as needed for postoperative pain control. A prescription for this medication will be sent to your pharmacy. 3. Tramadol 50 mgtake 1 to 2 tablets every 6 hours as needed for postoperative pain control. A prescription for this medication will be sent to your pharmacy 4. Colace & Senokot - Take to prevent constipation which can be caused by narcotics. These can be bought [id number] at the pharmacy * The most common side effects of pain medicine are nausea and constipation. If nausea or constipation is too much of a problem or if you have any questions about your new medicines or doses, call [facility] at . We will try to help you manage these issues. "VERY IMPORTANT TO READ AND REVIEW" Blood Clots and Blood Thinning Medicine: * You are given Eliquis during the immediate post-operative period to lessen the risk of blood clots forming in your legs and/or lungs. Eliquis is usually given for Four weeks after surgery. * The prescription is for 2.5 mg tablets. Physical Therapy: * Do your physical therapy at home. These are the exercises you learned while in the hospital (quad sets, leg raises, calf pumps, gluteal squeezes, knee bending, and heel props.) You should do these exercises 3-4 times per day. * You will go home with Home Therapy and nursing or home with outpatient rehab. You should do rehab with the therapist 2-3 times per week. You should do therapy on your own daily. * You may bear full weight on your leg with crutches or walker unless otherwise advised. Home Exercise: * You were shown a series of exercises (heel props, heel slides, etc.) in the hospital. Do these exercises three to four times each day including the exercises you were shown in physical therapy. Walking: * You may be up for short periods of time. Standing and walking for 1-2 hours at a time is usually okay. You should not stand or walk for excessive periods of time as this may Cause increased pain and swelling. SELF CARE INSTRUCTIONS AFTER TOTAL KNEE REPLACEMENT A. You may need to continue a physical therapy program after discharge from the hospital. There are several options available to you. Your doctor will assist you in selecting the best one for you. 1. An out-patient facility 2 to 3 times a week for therapy or home therapy. 2. Continue working on all exercises taught to you in the hospital. Your goals should be to increase bending of your knee to 90 degrees and beyond and to fully straighten your knee. B. Your therapist will notify you when you are able to progress from a walker to a cane. C. Wear TEDS as much as possible.~ They may be removed at night for laundering. D. Do not place a pillow behind your knee when resting. A pillow at your ankle is okay. E. Ice your knee 15-20 minutes every 2-3 hours and elevate it above the level of your heart. F. You may shower on the fourth day after surgery using regular soap and water. Do not submerge until the wound is completely healed (approximately 2 weeks). Until the fourth day after surgery, cover the incision/bandage with a bag or plastic wrap. G. Anyone who is touching your surgical incision area should wash their hands and wear gloves. H. Keep your incision covered with gauze pads under the GABY hose until it is dry. VERY IMPORTANT TO READ AND REVIEW A. There are a few signs you need to watch for after you are home. Call [facility] if you notice any of the followin. Increased severe knee pain. Some pain is expected especially when you exercise. 2. Increased swelling in your leg or knee; pain or swelling of the calf muscle in either lower leg. 3. Any fluid drainage from the incision. 4. Shortness of breath or chest pain. 5. Numbness and tingling in the surgical extremity B. Please call [facility] at if you have any concerns or questions about your operation or recovery. The doctor or his nurse will return your call promptly. C. Do not have any elective dental work or other elective procedures done for 6 weeks after your knee replacement. When you have any invasive procedure (dental cleaning, extraction, colonoscopy etc) performed, you will need to take antibiotics to prevent infection from developing in your artificial joint. Tell your other health care providers you have an artificial joint. My office will supply you with further information and the antibiotics. Call your doctor if: * Temperature above 101 degrees F. * Pain not relieved by pain medicine ordered. * Increased drainage or redness from incision. * Notify your doctor with any questions or concerns. Follow-up Visit: You will follow-up with Dr. Thorpe 10-14 days after surgery. The office number is . Avoid all tobacco products. If you need help to stop smoking, call [place] QUIT[facility] at . This is a free call. Pending Studies at Discharge: No Stand-Alone Forms: My [facility], Smoking Cessation Medications and DC Order Prescriptions: New Eliquis 2.5 mg Tablet 2.5 mg PO BID 14 Days Qty: 28 1RF acetaminophen [Tylenol Extra Strength] 500 mg Tablet 1,000 mg PO Q8 30 Days Qty: 180 0RF oxycodone 5 mg Tablet 5 - 10 mg PO Q4H MDD 6 tablets/day PRN (Reason: Postoperative pain control) Qty: 28 0RF tramadol 50 mg tablet 50 mg PO Q6 MDD 6 tablets/day Qty: 28 0RF ondansetron 4 mg tablet,disintegrating 4 mg PO Q8H Qty: 14 0RF Continued rosuvastatin 10 mg tablet 10 mg PO .COMPLEX Rx Instructions: 10 mg PO 6 x per week.; Bystolic 10 mg tablet 10 mg PO HS Qty: 90 1RF cholecalciferol (vitamin D3) 125 mcg (5,000 unit) capsule 125 mcg PO QAM budesonide-formoterol [Symbicort] 160-4.5 mcg/actuation HFA aerosol inhaler 1 puffs INH BID Qty: 10.2 2RF omeprazole 20 mg tablet,delayed release (DR/EC) 20 mg PO QAM PreserVision AREDS 2 Plus MV 200 mcg-15 mcg- 5 mg-1 mg capsule 1 cap PO BID coenzyme Q10 100 mg tablet 100 mg PO HS cetirizine 10 mg Tablet 10 mg PO QAM hawthorn carr 565 mg Capsule 565 mg PO QAM [place] Bone Strength 3 tabs PO HS losartan 100 mg tablet 100 mg PO QAM hydrochlorothiazide 12.5 mg tablet 12.5 mg PO QAM Discontinued Excedrin Back and Body 250-250 mg Tablet See Protocol PO Protocol: Age Greater than 75 Protocol Text: Age less than 75 years, to be administred with initial in subcutaneous dose Krames/Other Patient Handouts: Knee Replace Home Recovery, Knee Replace 1st Month Admission Data Admit Date/Time: 09/27/23 10:10 Attending Provider: Toro Thorpe Admit Provider: Toro Thorpe Primary Care Provider: Kelvin Polk Other Providers: [facility],Home Health Other Interventions: Discharge Summary Assessment (RN) Last Done: 09/28/23 11:44
== END 2023-09-28 13:05 | disposition home health service (06) ==
LOC: 3N 05:05 → ASU 05:05

== ENCOUNTER 2024-07-10 07:46 | Observation (INO) ==
--- NOTE | 2024-06-28 12:37 | Anesthesiology Consultation ---
Date of Service June 28, 2024 Assessment & Plan (1) Encounter for pre-operative examination: Chart Review Chart Review: Acceptable Risk for Surgery (pending upcoming PCP office visit review ) and Patient NOT seen in Pre Admission Testing - Awaiting PCP office visit scheduled 07/04/24 (MELODY Mora) - Check BSG AM DOS Right limb restriction -Infectious Disease screening: Per PAT nursing assessment on 06/28/24. No known infectious disease contacts in past 10 days or current infectious disease symptoms. No recent travel outside the country. Left TKA 09/27/23= Done under SAB at L3-4 with 1 attempt History Surgery Operation Date: 07/10/24 09:50 Proposed Procedures p Right Total Knee Arthroplasty - Toro Thorpe MD Height/Weight Height: 5 ft 1.5 in Weight: 73.936 kg Allergies Allergy/AdvReac Type Severity Reaction Status Date / Time NSAIDS (Non-Steroidal AdvReac Intermediate itching Verified 06/28/24 10:42 Anti-Inflamma Medications Home Medications Medication Instructions Recorded Confirmed Last Taken budesonide-formoterol HFA 160 1 puffs inhalation BID #10.2 grams 11/22/19 06/28/24 09/27/23 03:30 mcg-4.5 mcg/actuation aerosol inhaler (Symbicort) cholecalciferol (vitamin D3) 125 125 mcg PO QAM 11/22/19 06/28/24 09/26/23 06:00 mcg (5,000 unit) capsule rosuvastatin 10 mg tablet 10 mg PO UD 08/26/20 06/28/24 09/25/23 20:00 nebivolol 10 mg tablet (Bystolic) 10 mg PO HS #90 tabs 12/02/20 06/28/24 09/26/23 22:00 coenzyme Q10 100 mg tablet 100 mg PO HS 08/10/22 06/28/24 Unknown mv-mn-folic 200 mcg-vit K 15 1 cap PO BID 08/10/22 06/28/24 Unknown mcg-lutein 5 mg-zeaxanthin 1 mg capsule (PreserVision AREDS 2 Plus Multivit) omeprazole 20 mg tablet,delayed 20 mg PO QAM 08/10/22 06/28/24 09/27/23 03:30 release [employer] Bone Strength 3 tabs PO HS 08/22/23 06/28/24 Unknown cetirizine 10 mg tablet 10 mg PO QAM 08/22/23 06/28/24 09/26/23 06:00 suzie carr 565 mg capsule 565 mg PO QAM 08/22/23 06/28/24 Unknown hydrochlorothiazide 12.5 mg tablet 12.5 mg PO QAM 08/22/23 06/28/24 09/25/23 13:00 losartan 100 mg tablet 100 mg PO QAM 08/22/23 06/28/24 09/26/23 06:00 ondansetron 4 mg disintegrating 4 mg PO Q8H post op nausea #14 tabs 09/28/23 06/28/24 Unknown tablet Past Medical History Medical History (Updated 06/28/24 @ 12:36 by Katharine Griffin PA-C) AMD (age related macular degeneration) Asthma well-controlled, no need for prn inh Dyslipidemia GERD (gastroesophageal reflux disease) History of anesthesia reaction during patient only had a unilateral spinal anesthesia. HTN (hypertension) Hx of breast cancer dx 03/2020, sx and 20 xrt Limb alert care status right arm Osteopenia T2DM (type 2 diabetes mellitus) pt denies, stated her A1C "is getting close"; no recent A1Cs on file (most recent A1C 02/2023 was 6.4) Past Family History Family History Grandfather (Maternal) , Passed in 80's of "bone cancer" No problems noted. Mother , Passed age 86 of Pancreatic Cancer Pancreatic cancer Father , Passed in 80's of "blood cancer" Clotting disorder Stroke Diabetes Heart disease Hypertension Brother , Passed age 40 of alcoholic/drugs No problems noted. Daughter No problems noted. 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 History of right breast biopsy (04/16/20) History of total left knee replacement 09/27/2023 S/P emergency section (1990) Social History Smoking Status: Never smoker Do You Dip or Chew Tobacco: No Hx Alcohol Use: No Hx Substance Use: No substance use type: does not use Testing Laboratory Results 06/27/24= WBC: 6.14 H/H: 13.2/39.0 PLATELETS: 213 SODIUM: 130 (chronic mild hyponatremia- ranged from 132-134 in the past) POTASSIUM: 4.1 CHLORIDE: 99 CO2: 28.2 BUN: 21.2 CREATININE: 0.95 GLUCOSE: 203 PT: 12.7 INR: 1.14 Electrocardiogram Date: 08/31/23 Sinus bradycardia, rate 58 bpm Chest X-Ray Date: 08/31/23 No acute process.
[~2024-07-10 07:46] MED LIST: BUPIVACAINE 0.25% PF 30 ML VIAL ONE; BUPIVACAINE 0.5 % 5 MG/1 ML PF 10ML VIAL ONE; DEXAMETHASONE SOD INJ 4 MG/ML VIAL ONE; EPINEPHrine INJ 1 MG/ML AMP ONE
[2024-07-10] MEDS: GABAPENTIN 300 MG CAP PO SCH (08:17)
[2024-07-10] MEDS: ACETAMINOPHEN 500 MG TAB PO SCH ×2 (08:17→21:32)
[2024-07-10] MEDS: dexAMETHasone**PF** 10 MG/ML VIAL IV SCH (08:17)
[2024-07-10] MEDS: oxyCODONE HCL 10 MG TABCR (OxyCONTIN) PO SCH (08:17)
[2024-07-10] MEDS: CeleBREX 200 MG CAP PO SCH (08:18)
[2024-07-10] MEDS: LR 60ML/HR IV SCH (08:18)
[2024-07-10] MEDS: METOCLOPRAMIDE HCL 10 MG TABLET PO SCH (08:18)
[2024-07-10] MEDS: traMADol HCL 50 MG TABLET PO SCH (08:22)
[2024-07-10] MEDS: LR 500ML BOLUS, THEN 15ML/HR IV SCH (08:53)
[2024-07-10] MEDS ORDERED: MIDAZOLAM HCL 1 MG/ML 2ML VIAL ONE (09:25)
[2024-07-10] MEDS ORDERED: fentaNYL citrate PF 100 MCG/2 ML VIAL ONE (09:25)
[2024-07-10] MEDS ORDERED: PROPOFOL IV EMULSION 10 MG/ML 20 ML VIAL IV ONE ×2 (09:56→12:16)
--- NOTE | 2024-07-10 10:22 | History & Physical Bridge Note ---
Date of Service July 10, 2024 History & Physical Bridge Note I have examined the patient, reviewed the History & Physical and in the interval since the performance of the History & Physical I have noted the following changes of clinical significance: no changes noted
[2024-07-10] MEDS: TRANEXAMIC ACID 1,000 MG **IV Pre-op IV SCH (10:40)
[2024-07-10] MEDS ORDERED: ePHEDrine sulfate 50 MG/5 ML SYR ONE (10:47)
[2024-07-10] MEDS ORDERED: PHENYLEPHRINE 100MCG/ML 5ML SYR ONE (10:47)
[2024-07-10] MEDS ORDERED: PROMETHAZINE HCL 6.25 MG in SODIUM CHLORIDE 0.9% 50 ML IV PRN (10:55)
[2024-07-10] MEDS ORDERED: ATROPINE SULFATE 0.1 MG/ML 10ML SYR IV PRN (10:55)
[2024-07-10] MEDS ORDERED: ePHEDrine sulfate 50 MG/ML AMP IV PRN (10:55)
[2024-07-10] MEDS ORDERED: ONDANSETRON INJ 2 MG/ML 2 ML VIAL IV PRN ×2 (10:55→16:34)
[2024-07-10] MEDS ORDERED: fentaNYL citrate PF 100 MCG/2 ML VIAL IV PRN (10:55)
[2024-07-10] MEDS: ceFAZolin 2000MG 2,000 MG/15 ML SYR IV SCH ×2 (11:11→20:06)
[2024-07-10] MEDS ORDERED: DexMEDEtomidine HCL IV 100 MCG/ML VIAL IV ONE (11:36)
[2024-07-10] MEDS: ORTHO JOINT ANESTHETIC ONE (11:53)
[2024-07-10] MEDS ORDERED: ONDANSETRON INJ 2 MG/ML 2 ML VIAL ONE (12:16)
--- OUTSIDE RECORDS SUMMARY | 2024-07-10 12:23 | External Medical Summary | Continuity of Care Document ---
Author Name Unknown Organization [place] [id number] Address [address] [place] [address] [id number] Care Team Providers Care Automobile Service Station Attendant Name Role Phone Kelvin Polk Primary Care Physician [phone] Encounter [facility] [id number] Date(s): 06/27/24 - 06/27/24 [facility] [address] [place] [id number] [facility] Medicine [address] [place] [id number] Encounter Diagnosis Right knee DJD(Discharge Diagnosis) - 06/27/24 Preop examination(Discharge Diagnosis) - 06/27/24 Discharge Disposition: Home or Self Care Attending Physician: MIKE Rod, Dakota Burrows Referring Physician: MD Maurilio, Toro Myers Allergies, Adverse Reactions, Alerts Substance Criticality Severity Reaction Reaction Severity Status ibuprofen itching Active Medications amoxicillin 500 mg oral capsule Start: 10/12/23 1:48:00 PM EDT, 4 cap, PO, As indicated, Disp# 12 cap, Refills: 3, one hour before dental and other procedures as directed, Pharmacy: [id number] Start Date: 10/12/23 Status: Ordered Bystolic Start: 03/18/23 8:59:00 AM EDT Start Date: 03/18/23 Status: Ordered CoQ10 Start: 03/18/23 9:00:00 AM EDT Start Date: 03/18/23 Status: Ordered Euflexxa 10 mg/mL intra-articular solution Start: 04/04/23 12:44:00 PM EST, 20 mg =, intra-articular, q7days, Disp# 6 mL, Refills: 0, 6 syringes for B/L knees., Note to Pharmacy: B/L KNEE DJD M17.0, other Start Date: 04/04/23 Stop Date: 04/25/23 Status: Ordered hydroCHLOROthiazide 12.5 mg oral capsule Start: 03/18/23 8:58:00 AM EDT Start Date: 03/18/23 Status: Ordered ICaps AREDS Start: 03/18/23 9:00:00 AM EDT Start Date: 03/18/23 Status: Ordered losartan 100 mg oral tablet Start: 03/18/23 8:58:00 AM EDT Start Date: 03/18/23 Status: Ordered omeprazole Start: 03/18/23 8:59:00 AM EDT Start Date: 03/18/23 Status: Ordered ondansetron 4 mg oral tablet, disintegrating Start: 10/07/23 11:06:00 AM EDT Start Date: 10/07/23 Status: Ordered rosuvastatin 10 mg oral tablet Start: 03/18/23 8:57:00 AM EDT Start Date: 03/18/23 Status: Ordered Symbicort 160 mcg-4.5 mcg/inh inhalation aerosol Start: 03/18/23 8:58:00 AM EDT Start Date: 03/18/23 Status: Ordered Vitamin D3 5000 intl units (125 mcg) oral tablet Start: 03/18/23 9:00:00 AM EDT Start Date: 03/18/23 Status: Ordered ZyrTEC Start: 03/18/23 8:59:00 AM EDT Start Date: 03/18/23 Status: Ordered Mental Status 06/27/24 Barriers to Learning one year None evide nt Mandatory Health Literacy Documentation Yes Health Literacy Communication Barriers N ever Primary Language Bulgarian Problem List Condition Confirmation Course Effective Dates Status Health St atus Informant Arthritis of both knees Confirmed Active S/P knee replacement Confirmed Active Left knee DJD Confirmed Active Right knee DJD Confirmed Active Preop examination Confirmed Active Diagnosis Diagnosis Type Effective Dates Health Status Clinical Service Informant Right knee DJD Discharge Diagnosis 06/27/24 Preop examination Discharge Diagnosis 06/27/24 Procedures Procedure Date Related Diagnosis Body Site Status Total knee arthroplasty 1 09/27/23 Completed PARTIAL MASTECTOMY Comple tk 1Left Vital Signs Most recent to oldest [Reference Range]: 1 Height 156 cm (06/27/24 2:08 PM) Patient Weight 75.7 kg (06/27/24 2:08 PM) Body Mass Index 31.11 kg/m2 (06/27/24 2:08 PM) Heart Rate 64 bpm (06/27/24 2:08 PM) Blood Pressure 130/80mmHg (06/27/24 2:08 PM) Cuff Pulse Pressure 50 mmHg (06/27/24 2:08 PM) Social History Social History Type Response Smoking Status Never smoked cigaret isra Sex Female Sex Representation Female (finding) Pre-OP H & P * MIKE Jung, Gallo: PERFORM, MODIFY, MODIFY, MODIFY, MODIFY Event Display: Pre-OP H & P Authored Date: [id number] Name:VALERIA ZULUAGA Patient Number:[id number] :1950 Date of Service:06/27/2024 Chief Complaint R knee total replacement History of Present Illness Alexander a 73-year-old female accompanied by kerry who presents to the clinic today for history and physical examination. [facility] [facility]. Patient had herleft knee replaced with Dr. Thorpein Augustnd is very happy with it.She is looking forward to getting this one replaced. Is using Tylenol for the pain right now. Denies any new swellingabout the knee. No redness or rash on the knee. She has aprimary careclearanceappointmentscheduledand upcoming. Has a phone appointment scheduled withanesthesia for tomorrowbut does not need torepeat her preanesthesiaappointment. She has had no changes in her health status since herknee replacement9 months ago. Does not have any dental work scheduled. With last surgery, shewas happy with the home health servicesthat were utilized. She had [facility] to [facility] house for in-home PT for 4 to 6 weeksand she would like to do this again. She has not had any blood work since herlast surgery. Her pain was well-controlledlast surgery with a combination of Tylenol, tramadol, and oxycodone. She took Eliquis for 2 weekswith her last surgery. She still has awalker, cane, raised toilet seat, and shower chair at home. Does not need a temporary handicap parkingplacard. Her allergy toibuprofenlisted in her chart was discussed, and she reports a history of itchingwith anti-inflammatories in general. She is able to tolerate aspirin (from excedrin). Denies any history ofdiabetes. She has not had any recent illnesses. No cough, cold,fever, chills, chest pain, shortness of breath, abdominal pain,nausea, vomiting, diarrhea, dysuria, frequency,or urgency. No history of MRSA infection. No history of blood clots. Review of Systems Available in EMR Physical Exam Vitals & Measurements HR:64(Monitored) BP:130/80 SpO2:96% HT:156cm WT:75.700kg(Dosing) WT:75.7kg BMI:31.11 BMI:31.11 kg/m2 CONSTITUTIONAL: well developed, well nourished. resting comfortably in no distress. pleasant. EARS: tm's without erythema or bulging. canals without erythema or edema. EYES: PERRL. conjunctiva normal MOUTH: oropharynx clear. dentition in good repair. no evidence of dental infection CARDIOVASCULAR: regular rate and rhythm. no murmurs, rubs, or gallops RESPIRATORY: no tachypnea. lungs clear to auscultation bilaterally ABDOMEN: normal bowel sounds MUSCULOSKELETAL: Right knee with no effusion, rash, redness, or warmth. Stable in full extension with 1+ varus valgus laxity at 20 degrees knee flexion. Painless hip movement intact posterior drawer,negative Vonnie. Range of motion 0/1/110intact sensation NEUROLOGIC: no gross deficits Diagnostic Results Xrays of the knee interpreted by Dr. Thorpe on 06/22/2024 showlefttotal knee arthroplasty with a revision tibial stem. Well fixated and in good position. There is medial compartment arthritis [id number] right kneewith varus alignment. Generalized osteopenia. No fracture or bone orsoft tissue lesion evident. Radiographs done at [facility] Assessment/Plan 1.Right knee DJD 2.Preop examination Patient is scheduled for right total knee arthroplasty with Dr. Thorpe on 07/10/2023 History and physical performed today. No health concerns wereappreciated. Expectant management discussedregarding her upcoming surgery. At her last visit with Dr. Thorpeon 06/22/2024,informed consentform was completed and signed by the patient. Her EKG and chest x-ray will be currentanddo not require repeating. CBC, BMP, PT/INR, andtype and screen orderedtoday. She will have these results faxed to [facility]. She has no urinary symptoms. She does not have an in person preanesthesia appointment however will bespeaking with them on thephone tomorrow. She will discussmedicationsto take and hold in the perioperative timeframe however she has already started holdinghersupplements and Excedrin. Advised her that she can useTylenol up until the night before surgery for pain. PCP clearanceappointment is scheduled and upcoming and encouraged her to have the PCP clearance form faxed back to our office. Pain management plan:Patient did wellwithprior knee surgery with Tylenol,tramadol, and oxycodone. She stated that she was given a schedule of these medications to take after surgery and this was very helpful. We reviewed antibiotic prophylaxis related to dental procedures, and she has a current prescription. She declined a temporary disability parking placard. DVT prophylaxiswillincludeEliquis for 2 weekspostoperatively. She will take her omeprazole with a smallsip of waterthe morning of surgery. Did not order famotidineon preoperativeorder sheet. Her allergy profile was reviewed. She tolerated a 1-time dose of celebrex with her prior knee replacement, so this should be fine again. She has a walker and cane and will bring the walker with her. She was happy with the homehealth servicesutilizedwith recent knee surgeryand would like touse them again. She would like to participate with [facility] she did last time. She was given prescriptions forboth of these. Physical therapy plan/appointments Reviewed the pertinent points of the surgery booklet with patient and encouraged to read through the entire booklet. Chlorhexidine wipes instructions reviewed. NPO after midnight the night before surgery. 2-weekpostoperative follow-up appointment is scheduled with Dr. Thorpe. Problem List/Past Medical History Ongoing Arthritis of both knees Left knee DJD Preop examination Right knee DJD S/P knee replacement Procedure/Surgical History Total knee arthroplasty| Service Date: 4PARTIAL MASTECTOMY Medications Home amoxicillin(amoxicillin 500 mg oral capsule), 2000 mg= 4 cap, PO, As indicated, 3 refills budesonide-formoterol(Symbicort 160 mcg-4.5 mcg/inh inhalation aerosol) cetirizine(ZyrTEC) cholecalciferol(Vitamin D3 5000 intl units (125 mcg) oral tablet) hydroCHLOROthiazide(hydroCHLOROthiazide 12.5 mg oral capsule) losartan(losartan 100 mg oral tablet) multivitamin with minerals(ICaps AREDS) nebivolol(Bystolic) omeprazole ondansetron(ondansetron 4 mg oral tablet, disintegrating) rosuvastatin(rosuvastatin 10 mg oral tablet) sodium hyaluronate(Euflexxa 10 mg/mL intra-articular solution), 20 mg, intra- articular, q7days ubiquinone(CoQ10) Allergies ibuprofenitching Social History Smoking Status Never smoked cigarettes Electronic Signature on File Electronically Reviewed/Signed by: Gallo Jung PA-C Author Signature Dt/Tm:06/28/2024 02:24 PM Division of Sports Medicine Electronically Reviewed/Signed by: Toro Thorpe MD Cosigner Signature Dt/Tm: 06/29/2024 02:36 PM Division of Sports Medicine Patient Care team information Care Team Personnel Name: MIKE Polk, Kelvin Anders Position: Referring Member Role: Primary Care Provider Address: [address] [address]"
--- OUTSIDE RECORDS SUMMARY | 2024-07-10 12:23 | External Medical Summary | Continuity of Care Document ---
Author Name Unknown Organization [place] [id number] Address [address] [place] [address] [phone] Care Team Providers Care Title I Paraprofessional Name Role Phone Kelvin Polk Primary Care Physician [phone] Encounter [facility] [id number] Date(s): 06/22/24 - 06/22/24 [facility] [address] [place] [id number] [facility] Medicine [address] [place] [id number] Encounter Diagnosis Arthritis of both knees(Discharge Diagnosis) - 06/22/24 Discharge Disposition: Home or Self Care Attending Physician: MD Maurilio, Toro Myers Allergies, Adverse Reactions, Alerts Substance Criticality Severity Reaction Reaction Severity Status ibuprofen itching Active Medications amoxicillin 500 mg oral capsule Start: 10/12/23 1:48:00 PM EDT, 4 cap, PO, As indicated, Disp# 12 cap, Refills: 3, one hour before dental and other procedures as directed, Pharmacy: [id number] Start Date: 10/12/23 Status: Ordered [...] Start Date: 03/18/23 Status: Ordered Mental Status 06/22/24 Barriers to Learning one year None evide nt Mandatory Health Literacy Documentation Yes Health Literacy Communication Barriers N ever Primary Language Slovenian Problem List Condition Confirmation Course Effective Dates Status Health St atus Informant Arthritis of both knees Confirmed Active S/P knee replacement Confirmed Active Left knee DJD Confirmed Active Diagnosis Diagnosis Type Effective Dates Health Status Cl inical Service Informant Arthritis of both knees Discharge Diagnosis 06/22/24 Non-Specified Procedures Procedure Date Related Diagnosis Body Site Status Total knee arthroplasty 1 09/27/23 Completed 1Left Social History Social History Type Response Smoking Status Never smoked cigaret isra Sex Female Sex Representation Female (finding) Ortho Outpt Note * MD Maurilio, Toro S: PERFORM Event Display: Ortho Outpt Note Authored Date: [id number] Name:VALERIA ZULUAGA Patient Number:[id number] :1950 Date of Service:06/22/2024 And is here for follow-up evaluation of her right knee. She previously had cortisone and lubricating shots with limited success. She would like to have her right knee replaced. Her left knee isdoing great. Surgery was inApril 2023. On the right leg she has no tenderness. She does localize her discomfort lateral but also medial. Posterior. Stable in full extension with 1+ varus valgus laxity at 20 degrees knee flexionpainless hip movement intact posterior drawer negative Vonnie. Range of motion 0/1/110intact sensation 1+ DP and PT pulses5 out of 5 strength knee flexion extension ankle and toe plantarflexion dorsiflexion inversion eversion. Impression isosteoarthritis of the right knee Plan:Everything went well with her previous surgery. She would like to proceed with the right knee. We talked about medications and injections which have not been effective in the past. We had a brief discussion about the nature of the surgery. We talked about risks benefits rehab recovery. Eliquis 2 weeks postoperatively. Informed consent was obtained. She will call to get scheduled. 4 views both knees obtained in person interpreted by reina alefttotal knee arthroplasty withan revision tibial stem. Well fixated and in good position. There is medial compartment arthritis [id number] right kneewith varus alignment. Generalized osteopenia. No fracture or bone orsoft tissue lesion evident. Radiographs done at [facility] Electronic Signature on File Electronically Reviewed/Signed by: Toro Thorpe MD Author Signature Dt/Tm:06/22/2024 03:38 PM Division of Sports Medicine PSS Patient Care team information Care Team Personnel Name: MIKE Polk, Kelvin Anders Position: Referring Member Role: Primary Care Provider Address: [address] [address]
[2024-07-10] MEDS: ROPIV 0.5% 246mg, Ketorolac 30mg, EPINEPHrine 0.5mg in NSS INFIL SCH (12:40)
[2024-07-10] MEDS: VANCOMYCIN HCL 1000MG/20ML VIAL ONE ×2 (12:40→13:15)
--- NOTE | 2024-07-10 14:04 | Operative Report ---
Post Operative Report Pre & Post Diagnosis Operation Date: 07/10/24 09:50 Pre-Op Diagnosis: Right Knee Degenerative Joint Disease Post-Op Diagnosis: Right Knee Degenerative Joint Disease I identified the patient and participated in the time-out.: Yes Procedure Operation Date: 07/10/24 09:50 Actual Procedures p Right Total Knee Arthroplasty(Right) - Toro Thorpe MD Surgeon Toro Thorpe MD Digital Advertising Specialist Estela Mcnulty no resident or fellow available Estimated Blood Loss 10 Findings Consistent with Post-Op Diagnosis Specimens Resected bone and soft tissue Anesthesia Type MAC Spinal Regional Complications none Disposition Accompanied Patient To Recovery: No Disposition: Recovery Room Indications Lashawn is 73. She has right knee arthritis refractory to nonsurgical methods of management. She is elected to proceed with surgery. She had a successful left knee replacement last year Description of Procedure Informed consent. Patient identified. She identified the procedure site as the right knee. I marked with my initials. A preoperative surgical timeout was performed. Preop dose of IV antibiotics was given. She was taken to the operating room positioned supine on the operating room table. The anesthetic was administered. A tourniquet was applied to the right thigh. A bump under the right hip and a padded post under the right calf. The leg was prepped and draped in usual sterile fashion. DVT prophylaxis intraoperatively with foot pumps. Postop early mobility mechanical devices and Eliquis starting the morning after surgery. The exam under anesthesia revealed flexion to approximately 120 Extension was -5 there was 1+ MCL laxity at 20 degrees knee flexion otherwise stable. TXA given. Limb exsanguinated with the Esmarch. Tourniquet inflated to 275 mmHg. A midline longitudinal incision was made followed by medial parapatellar arthrotomy. Retropatellar fat pad resected. The synovial layer in the lateral gutter was released. Soft tissue on the anterior aspect of the distal femur was resected. An extensile medial release was performed. Osteophytes were removed throughout the knee as encountered. There were grade 4 changes over large portions of the medial compartment tibia and femur. There were grade 4 changes on the medial patella. The lateral compartment was largely normal. The tibia was subluxated after everting the patella. The cruciate ligaments were resected as well as the meniscal remnants. A instructor pilot hole was drilled into the proximal tibia. Intramedullary alignment nilay inserted. 3 degree cutting block was aligned to the tibial tubercle and pinned into place. It was set to resect 10 mm off the lateral side corresponding to 6 mm medial. The extra medullary alignment nilay was utilized to confirm slope and alignment. This cut was made and sized to a 3. A instructor pilot hole was drilled into the distal femur followed by the insertion of the distal femoral cutting guide. Right knee 6 degree valgus based on preop templating and 11 mm thick cut because of her flexion contracture. The guide was pinned in the place and the cut was made. The extension gap was a slightly asymmetric 6. Epicondylar axis marked out. Distal femoral sizing guide applied. Sized to a 3. 3 degrees external rotation matching the epicondylar axis. The block was pinned in the place. Collateral ligaments protected. Cuts were made. Osteophytes removed from the back of the knee. It was now a reasonably symmetric 8 mm in flexion and extension. The box cutting guide was applied and lateralized and the box cut was made. The trial femur was applied and the lug holes were drilled. The tibia was prepared for the revision mobile- bearing tray with the 2 reamers and the keel punch. Trialing was performed show ing good stability with the 8 spacer. There was 1+ varus valgus mid position laxity. Tibial component was aligned to the tibial tubercle. Attention was turned to the patella. The patella measured 22 mm in thickness. The guide was set to preserve 14 mm of bone. The cut was made and the residual patellar thickness was 14. The 35 patella was selected and aligned to the trochlea with the knee in slight flexion and then the lug holes were drilled. Patellar tracking was fine with no hands technique. The trial components were removed from the knee the bony surfaces were meticulously prepared with pulsatile lavage and drying. Ortho joint mix injected in the back the knee. 2 bags of Simplex P cement were mixed with 2 g of Vanco total. While in a doughy state smears were placed on the posterior femoral condyles. The lug holes were cemented. The femur followed by the tibia and patella. Some cement was injected into the tibial canal but the majority was placed onto the stem and onto the cut surface of the tibia. The components were held in full extension with a size 8 spacer until the cemented hardened. Tourniquet then let down after approximately 90 minutes of inflation.There is no significant bleeding. The remainder the Ortho joint mix and copious irrigation was performed while the cement was hardening. Trialing was again performed and I went up to the size 10 which eliminated the mid position laxity and still allow full extension within the degree or 2. Midland assisted flexion with extensor mechanism closed was 120 degrees. The back the knee was inspected for cement and bleeding and addressed as encountered. The final polyethylene was inserted. I half gram of Vanco was applied deep to the extensor mechanism. 1/2 g superficial. The extensor mechanism was closed above the equator of the patella with interrupted #2 FiberWire. It was closed below the equator of the patella with running and interrupted #1 Vicryl. The skin was closed in layers with 0 an d 2-0 Vicryl followed by isabella on the skin. The leg was cleaned and then dressed with Xeroform 4 x 4's ABD soft wrap full-length Ben wrap and knee immobilizer. The patient was awakened from anesthesia difficulty and was then taken to the recovery room in stable condition. The resected bone and soft tissue fragments were sent for specimens. Counts were correct and blood loss is estimated to be 10 cc. At the conclusion of the operation spoke the patient's informed him of my findings and postop instructions were given Components inserted were the J&J attune knee a 35 patella a size 3 revision mobile-bearing keeled tibial tray a size 3 posterior stabilized femoral component with a size 3 x 10 mm thick polyethylene insert. Patient does have a diagnosis of osteoporosis. Her BMI is 31. She had decreased bone density in the medial femoral condyle was noted. She may weight- bear as tolerated and will rehabilitate according to the total knee protocol. I attest to the content of the Intraoperative Record and any orders documented therein. Any exceptions are noted below.
--- NOTE | 2024-07-10 14:12 | Operative Report ---
Post Operative Report Pre & Post Diagnosis Operation Date: 07/10/24 09:50 Pre-Op Diagnosis: Right Knee Degenerative Joint Disease Post-Op Diagnosis: Right Knee Degenerative Joint Disease I identified the patient and participated in the time-out.: Yes Procedure Operation Date: 07/10/24 09:50 Actual Procedures p Right Total Knee Arthroplasty(Right) - Toro Thorpe MD Surgeon Toro Thorpe M.D. Tie Tape Machine Operator Estela Mcnulty no resident or fellow available Estimated Blood Loss 10 Findings Consistent with Post-Op Diagnosis Specimens bone and soft tissue Anesthesia Type MAC Spinal Regional Description of Procedure Patient was taken to the operating room and placed under spinal anesthesia with a peripheral nerve block. She was given 2 g of IV Ancef for surgical prophylaxis. She was given 1 g of IV TXA for preoperative bleeding prophylaxis. She was prepped and draped in routine sterile fashion. I was present during the entire case. Please see Dr. Thorpe's operative report for further details regarding today's procedure. Patient was awakened and transferred the recovery room in stable condition. I attest to the content of the Intraoperative Record and any orders documented therein. Any exceptions are noted below.
--- NOTE | 2024-07-10 14:35 | XRay Report ---
XR knee RT 1 or 2V routine CLINICAL HISTORY: Postoperative evaluation. COMPARISON: Right knee radiographs June 22, 2024. FINDINGS: Alignment of the total right knee arthroplasty is anatomic. There is no periprosthetic fra cture or unexpected radiopaque foreign body. There are skin isabella. IMPRESSION: Expected findings following total right knee arthroplasty. ACT 112: Negative or not required by law. Electronically signed by: Jani Verma M.D. 07/10/2024 2:34 PM
--- NOTE | 2024-07-10 15:02 | Anesthesiology Progress Note ---
Date of Service July 10, 2024 Anesthesia Post Procedure Vital Signs Vital Signs: Temp Pulse Pulse Resp BP Pulse Ox O2 Del Method 07/10/24 15:00 77 16 136/68 92 Room Air 07/10/24 14:45 36.7 C 79 16 139/74 93 Room Air 07/10/24 14:35 80 14 124/72 93 Room Air 07/10/24 14:25 77 14 134/71 92 Room Air 07/10/24 14:15 36.4 C L 80 16 138/76 92 Room Air 07/10/24 14:05 78 14 151/61 H 92 Room Air 07/10/24 13:59 36.3 C L 80 16 129/78 97 Room Air 07/10/24 08:09 36.7 C 66 18 174/74 H 97 Room Air Transfer of Care Handoff Completed per policy Notes Mental Status: alert / awake / arousable Patient Amnestic to Procedure: Yes Nausea / Vomiting: adequately controlled Pain: adequately controlled Airway Patency, RR, SpO2: stable & adequate BP & HR: stable & adequate Hydration State: stable & adequate Neuraxial Anesthesia: was administered and sensory block is resolving Anesthetic Complications: no major complications apparent and Pt Satisfied with anesthetic care
--- NOTE | 2024-07-10 16:05 | Orthopedic Progress Note ---
Date of Service July 10, 2024 Assessment & Plan (1) Status post knee replacement: Plan: Postoperative day 0-right total knee arthroplasty with Dr. Thorpe. May be out of bed, weight-bear as tolerated on the right lower extremity with the assistance of a walker knee immobilize (when out of bed). Will start PT and OT tomorrow. Home medications are resumed. Pain medication as prescribed. Eliquis 2.5 mg p.o. twice daily to start tomorrow morning for DVT prophylaxis. We will use this for 2 to 4 weeks after surgery. Continue TEDS and AV impulse boots Ice and elevate to the right knee as needed for swelling. Case management for disposition needs. Dr. Thorpe present for today's visit. Will reevaluate tomorrow morning. Plan for home with home health tomorrow if safe and PT and OT and feeling well. Glycemic control consult placed for management of type 2 diabetes. Subjective Lashawn was seen in the recovery room. She is status post a right total knee arthroplasty. She denies having pain. She is states that her right leg is still numb and tingly. She is very pleased with how well she feels otherwise. She is getting ready to be transported to her inpatient room. Physical Exam Musculoskeletal: Exam of her right lower extremity: Postoperative dressings are clean, dry and intact. Ice is in place in the anterior aspect of her right knee. She has no ability to move her right ankle actively. She can gently plantarflex her toes but is unable to dorsiflex her toes at all. Minimal sensation at the tips of all of her toes. Dorsalis pedis pulses 1+. No sensation throughout the rest of her foot Which is expected due to the nerve block in the spinal. No edema the right lower extremity. Results & Data Vital Signs (Past 12 Hours) Vital Signs Temp Pulse Pulse Resp BP Pulse Ox O2 Del Method 07/10/24 15:45 36.4 C L 74 18 165/83 H 92 Room Air 07/10/24 15:30 73 16 137/67 92 Room Air 07/10/24 15:15 74 16 132/71 92 Room Air 07/10/24 15:00 77 16 136/68 92 Room Air 07/10/24 14:45 36.7 C 79 16 139/74 93 Room Air 07/10/24 14:35 80 14 124/72 93 Room Air 07/10/24 14:25 77 14 134/71 92 Room Air 07/10/24 14:15 36.4 C L 80 16 138/76 92 Room Air 07/10/24 14:05 78 14 151/61 H 92 Room Air 07/10/24 13:59 36.3 C L 80 16 129/78 97 Room Air 07/10/24 08:09 36.7 C 66 18 174/74 H 97 Room Air Diagnostic Findings Knee X-Ray 07/10/24 14:09 XR knee RT 1 or 2V routine CLINICAL HISTORY: Postoperative evaluation. COMPARISON: Right knee radiographs June 22, 2024. FINDINGS: Alignment of the total right knee arthroplasty is anatomic. There is no periprosthetic fracture or unexpected radiopaque foreign body. There are skin isabella. IMPRESSION: Expected findings following total right knee arthroplasty. ACT 112: Negative or not required by law. Electronically signed by: Jani Verma M.D. 07/10/2024 2:34 PM
[2024-07-10] MEDS ORDERED: bisacodyL 10 MG SUPP PR PRN (16:34)
[2024-07-10] MEDS ORDERED: hydrALAZINE HCL 20 MG/ML VIAL IV PRN (16:34)
[2024-07-10] MEDS ORDERED: NALOXONE HCL 0.4 MG/1 ML VIAL/CARP IV PRN (16:34)
[2024-07-10] MEDS ORDERED: PHARMACY GLYCEMIC MGMT CONSULT PRN (16:34)
[2024-07-10] MEDS ORDERED: METOCLOPRAMIDE HCL INJ 5 MG/ML 2 ML VIAL IV PRN (16:34)
[2024-07-10] MEDS ORDERED: HYDROmorphone INJ 1 MG/ML SYRINGE IV PRN (16:34)
[2024-07-10] MEDS ORDERED: HYDROmorphone INJ 0.5 MG/0.5 ML SYR IV PRN (16:34)
[2024-07-10] MEDS ORDERED: MAGNESIUM HYDROXIDE SUSP 30 ML UDC PO PRN (16:34)
[2024-07-10] MEDS ORDERED: GLUCAGON FOR INJ 1 MG VIAL SQ PRN (17:00)
[2024-07-10] MEDS ORDERED: GLUCOSE 40% GEL 15 GM TUBE PO PRN (17:00)
[2024-07-10] MEDS ORDERED: DEXTROSE 50% 50 ML SYRINGE IV PRN (17:00)
[2024-07-10] MEDS ORDERED: CARBOHYDRATES FOR HYPOGLYCEMIA PO PRN (17:00)
[2024-07-10] MEDS ORDERED: GLUCOSE 10 TAB/TUBE PO PRN (17:00)
[2024-07-10] MEDS: INSULIN ASPART PER UNIT CHARGE SC SCH (17:43)
[2024-07-10] MEDS: KETOROLAC TROMETHAMINE 15 MG/ML VIAL IV SCH (18:11)
[2024-07-10] MEDS ORDERED: Nursing to Pharmacy Communication SCH (18:45)
[2024-07-10] MEDS: LANTUS PER UNIT CHARGE SC ONE (20:06)
[2024-07-10] MEDS: DOCUSATE SODIUM 100 MG CAP PO SCH (20:07)
[2024-07-10] MEDS: SENNA 8.6 MG TAB PO SCH (20:07)
[2024-07-10] MEDS: TRANEXAMIC ACID / 0.7% NACL 1,000 MG/100 ML BAG IV SCH (20:07)
[2024-07-10] MEDS: FLUTICASONE/VILANTEROL 100/25MCG 14 PUFFS/INHALER INH SCH (20:07)
[2024-07-10] MEDS ORDERED: NON-FORMULARY MEDICATION (Nebivolol [Bystolic] 10 mg tablet) PO SCH (21:00)
[2024-07-10] MEDS ORDERED: METOPROLOL TARTRATE 50 MG TAB PO SCH (21:00)
[2024-07-10] MEDS: [UNRECOGNIZED DRUG - REMARK] PO SCH (21:34)
[2024-07-11] MEDS: INSULIN ASPART PER UNIT CHARGE SC SCH (00:07)
[2024-07-11 06:31] LABS: Hemoglobin 11.6 g/dl (12.0-16.0); Mean Corpuscular Hemoglobin 32.4 pg (25.0-34.0); Mean Corpuscular Hgb Conc 35.2 g/dL (32.0-36.0); Mean Corpuscular Volume 92.2 fL (80.0-100.0); Mean Platelet Volume 11.2 fL (9.4-12.4); Platelet Count 191 K/uL (130-400); RDW Coefficient of Variation 11.9 % (11.5-14.5); RDW Standard Deviation 40.6 fL (36.4-46.3); Red Blood Count 3.58 M/uL (4.20-5.40); White Blood Count 11.03 K/ul (4.8-10.8)
[2024-07-11 06:51] LABS: BUN Creatinine Ratio 27.2 (10-20); Calcium 9.2 mg/dl (8.6-10.3); Creatinine Clr Calc Pharmacy 51.2 ml/min; Potassium 4.4 mmol/L (3.5-5.1)
[2024-07-11 07:17] LABS: Estimated Average Glucose 140 mg/dl; Hemoglobin A1C 6.5 % (4.5-5.6)
[2024-07-11] MEDS: traMADol HCL 50 MG TABLET PO PRN (07:54)
[2024-07-11] MEDS: PANTOprazole 40 MG TAB PO SCH (07:55)
[2024-07-11] MEDS: APIXABAN 2.5 MG TAB PO SCH (07:56)
[2024-07-11] MEDS: hydroCHLOROthiazide 25 MG TAB PO SCH (07:56)
[2024-07-11] MEDS: LOSARTAN POTASSIUM 50 MG TAB PO SCH (07:56)
[2024-07-11] MEDS: dexAMETHasone 4 MG TAB PO SCH (07:57)
[2024-07-11] MEDS: CHOLECALCIFEROL 125 MCG (5,000 UNITS) TAB PO SCH (07:57)
[2024-07-11] MEDS: CETIRIZINE HCL 10 MG TABLET PO SCH (07:57)
[2024-07-11] MEDS: CEROVITE ADV FORMULA TAB PO SCH (07:57)
[2024-07-11] MEDS: ROSUVASTATIN CALCIUM 10 MG TAB PO SCH (07:58)
[2024-07-11] MEDS ORDERED: MULTIVITAMIN TAB PO SCH (09:00)
[2024-07-11 09:14] VITALS: BP 162/77; PULSE 61; RESP 18; TEMP 98.8; O2SAT 96
--- NOTE | 2024-07-11 10:22 | Orthopedic Progress Note ---
Date of Service July 11, 2024 Assessment & Plan (1) Status post knee replacement: Plan: Postoperative day 1-right total knee arthroplasty with Dr. Thorpe. May be out of bed, weight-bear as tolerated on the right lower extremity with the assistance of a walker . She may get rid of the knee immobilizer. Recommended she take at home to use as needed. She was seen by PT and OT today. Safe for discharge to home. Continue home medications. Pain medication as prescribed. Eliquis 2.5 mg p.o. twice daily to Started this morning for DVT prophylaxis. We will use this for 2 to 4 weeks after surgery. Continue TEDS and AV impulse boots Ice and elevate to the right knee as needed for swelling. Case management for disposition needs. Home health arrangements have been made. Dr. Thorpe present for today's visit. Plan for discharge home today. Medications have been sent to her pharmacy. Discharge instructions were reviewed. Home health arrangements have been finalized. Follow up as scheduled as outpatient. Admission and Anticipated Discharge Date Admission Date: July 10, 2024 Arpita Hardin is seen at bedside today. Doing well. No complaints of pain in her right knee. Has been out of bed ambulating with occupational and physical therapy. Denies any postoperative nausea or vomiting. Denies any numbness or tingling, lightheadedness or dizziness. She is tolerating a regular diet. She notes some mild bloody drainage on the dressings. She would like to get rid of her knee immobilizer. Physical Exam Musculoskeletal: Exam focused on her right lower extremity: She has no distal edema. Postoperative dressings were removed. Her incision is clean, dry and intact with retained isabella. No active bloody drainage. No underlying hematoma or seroma. Trace effusion to her right knee. She is able to actively straight leg raise and hold against resistance. Full ankle range of motion and normal strength. Dorsalis pedis and posterior tibial pulses are 1+. Normal sensation throughout the right foot and lower leg. Calf is supple and nontender. Ecchymosis across the anterior aspect of her right thigh most likely from the tourniquet. Tolerates logrolling of her right hip. Results & Data Vital Signs (Past 12 Hours) Vital Signs Temp Pulse Pulse Resp BP Pulse Ox O2 Del Method 07/11/24 07:50 37.1 C 61 18 162/77 H 96 Room Air 07/11/24 04:20 36.5 C 64 16 168/81 H 95 Room Air 07/10/24 23:19 36.6 C 66 18 150/74 H 95 Room Air Laboratory Results 07/11/24 07/11/24 07/11/24 07:33 05:29 04:16 WBC 11.03 H RBC 3.58 L Hgb 11.6 L Hct 33.0 L MCV 92.2 MCH 32.4 MCHC 35.2 RDW Std Deviation 40.6 RDW Coeff of Reginald 11.9 Plt Count 191 MPV 11.2 Sodium 132 L Potassium 4.4 Chloride 99 Carbon Dioxide 26 Anion Gap 7 BUN 25 H Creatinine 0.92 Est Cr Clr Drug Dosing 51.2 eGFR 65.75 BUN/Creatinine Ratio 27.2 H Glucose 154 H POC Glucose 170 H 155 H Estimat Average Glucose 140 Hemoglobin A1c 6.5 H Calcium 9.2 07/10/24 07/10/24 07/10/24 23:57 21:11 17:35 WBC RBC Hgb Hct MCV MCH MCHC RDW Std Deviation RDW Coeff of Reginald Plt Count MPV Sodium Potassium Chloride Carbon Dioxide Anion Gap BUN Creatinine Est Cr Clr Drug Dosing eGFR BUN/Creatinine Ratio Glucose POC Glucose 178 H 216 H 247 H Estimat Average Glucose Hemoglobin A1c Calcium
--- NOTE | 2024-07-11 10:30 | Discharge Summary ---
Date of Service July 11, 2024 Discharge Data Procedures Performed Operation Date: 07/10/24 09:50 Actual Procedures p Right Total Knee Arthroplasty(Right) - Toro Thorpe MD Hospital Course (1) Status post knee replacement: Patient was kept in observation at [facility] after undergoing an elective right total knee arthroplasty with Dr. Thorpe on July 10, 2024. She tolerated the procedure well with out any intraoperative complications. Her surgery was performed with spinal anesthesia and peripheral nerve block as well as IV sedation. She was given 2 g of IV Ancef for surgical prophylaxis which was continued for 24 hours after surgery. She was given 1 g of IV TXA preoperatively for bleeding prophylaxis which was repeated and another dose 6 hours after that initial dose. In the recovery room she had x-rays of her right knee which showed a stable right knees prosthesis without any evidence of hardware complication. She was allowed out of bed, weight-bear as tolerated on her right lower extremity with the assistance of a walker and a knee immobilizer. Her home medications were continued. A glycemic consult was placed for management of her diabetes while in house. Bowel regimen was also provided. She was provided Tylenol, tramadol, oxycodone, Toradol for postoperative pain control as well as IV Dilaudid. Postoperative pain was well-controlled with oral pain medications. She did have some mild drainage on the dressings which was changed on postoperative day 1. When evaluating her incision it was clean, dry and intact with no active bleeding. A new dressing was applied. She was started on Eliquis 2.5 mg p.o. twice daily on postoperative day 1 for DVT prophylaxis. This will be continued for 2 to 4 weeks after surgery. She was also provided GABY stockings and AV impulse boots during her inpatient stay. She was out of bed with nursing starting on postoperative day 0 and then out of bed with physical therapy and Occupational Therapy on day 1. She was deemed safe for discharge by both the occupational and physical therapist. Case management was involved for disposition needs. Due to her being been well-controlled and her being safe out of bed she was discharged to her home in stable condition on July 11, 2024. Discharge instructions were reviewed follow-up appointments have been scheduled.
[2024-07-11] MEDS: oxyCODONE HCL IR 5 MG TAB (IMMEDIATE RELEASE) PO PRN (10:57)
== END 2024-07-11 11:18 | disposition home health service (06) ==
LOC: 3E 07:46 → ASU 07:46